=== PATIENT | female | born 1980 | race African-American/Black ===

== ENCOUNTER 2017-01-28 00:52 | Emergency (ER) | payer OTHER ==
[~2017-01-28] VITALS: Ht 165.1 cm; Wt 77.0 kg
[~2017-01-28 00:52] MED LIST: CEPH-569 PO; RIVA20TA PO
[2017-01-28] MEDS ORDERED: IBUPROFEN 600MG TABLET PO ONE (07:15)
[2017-01-28 07:41] LABS: CHLORIDE 105 mEq/L (98-107)
[2017-01-28 07:47] LABS: BASOPHILS % 0.9 % (0.0-2.0); CARBON DIOXIDE 30 mEq/L (21-32); ETHANOL BLOOD < 10 mg/dL; HEMOGLOBIN. 10.2 g/dL (12.0-16.0); LYMPHOCYTES % 40.3 % (20.0-50.0); MEAN CORPUSCULAR HEMOGLOBIN 23.1 pg (28.0-32.0); MEAN CORPUSCULAR VOLUME 74.8 fL (81.0-99.0); MEAN PLATELET VOLUME 7.4 fl (7.4-10.4); MONOCYTES % 9.2 % (2.0-8.0); NEUTROPHILS % 47.6 % (40.0-76.0); PLATELET 282 x1000/uL (130-400); RED BLOOD CELL COUNT 4.42 mill/uL (4.2-5.4); RED CELL DISTRIBUTION WIDTH 19.9 % (11.6-14.6)
[2017-01-28 08:49] LABS: *AMPHETAMINES SCREEN URINE NEGATIVE (NEGATIVE); *BARBITURATES SCREEN URINE NEGATIVE (NEGATIVE); *BENZODIAZEPINES SCREEN URINE NEGATIVE (NEGATIVE); *COCAINE SCREEN URINE NEGATIVE (NEGATIVE); CANNABINOID URINE SCREEN NEGATIVE (NEGATIVE); METHADONE URINE SCREEN NEGATIVE (NEGATIVE); OPIATES URINE SCREEN NEGATIVE (NEGATIVE); PHENCYCLIDINE URINE SCREEN NEGATIVE (NEGATIVE)
[2017-01-28 15:52] VITALS: BP 132/86
== END 2017-01-28 15:58 | disposition home or self-care (01) ==
LOC: ER 00:52
DX: R45.851 Suicidal ideations (principal); M79.605 Pain in left leg; F17.200 Nicotine dependence, unspecified, uncomplicated; F12.10 Cannabis abuse, uncomplicated; Z88.8 Allergy status to other drugs, medicaments and biological substances
CPT/HCPCS: 36415; 80053; 80305; 80307; 80329; 85025; 99284; G0482

== ENCOUNTER 2017-03-05 23:29 | Emergency (ER) | payer OTHER ==
[~2017-03-05] VITALS: Ht 167.6 cm; Wt 84.0 kg
[2017-03-06] MEDS ORDERED: SODIUM CHLORIDE 0.9% 1,000 ML IV ONE (02:03)
[2017-03-06 02:29] LABS: CHLORIDE 106 mEq/L (98-107)
[2017-03-06 02:31] LABS: BASOPHILS % 1.5 % (0.0-2.0); EOSINOPHILS % 1.7 % (0.0-5.0); HEMATOCRIT. 28.3 % (36.0-48.0); HEMOGLOBIN. 8.7 g/dL (12.0-16.0); INR 1.1; LYMPHOCYTES % 49.3 % (20.0-50.0); MEAN CORPUSCULAR HEMOGLOBIN 23.1 pg (28.0-32.0); MEAN CORPUSCULAR VOLUME 74.8 fL (81.0-99.0); MEAN PLATELET VOLUME 6.9 fl (7.4-10.4); MONOCYTES % 9.7 % (2.0-8.0); NEUTROPHILS % 37.8 % (40.0-76.0); PLATELET 313 x1000/uL (130-400); RED BLOOD CELL COUNT 3.79 mill/uL (4.2-5.4); RED CELL DISTRIBUTION WIDTH 18.5 % (11.6-14.6)
[2017-03-06 02:34] LABS: CLARITY URINE CLEAR (CLEAR); COLOR URINE YELLOW (YELLOW); GLUCOSE URINE NEGATIVE (NEGATIVE); KETONES URINE TRACE (NEGATIVE); LEUKOCYTE ESTERASE URINE NEGATIVE (NEGATIVE); NITRITE URINE NEGATIVE (NEGATIVE); OCCULT BLOOD URINE NEGATIVE (NEGATIVE); PROTEIN URINE NEGATIVE (NEGATIVE); SPECIFIC GRAVITY URINE 1.026 (1.005-1.030)
[2017-03-06 02:36] LABS: HCG SCREEN NEGATIVE
[2017-03-06 02:37] LABS: CARBON DIOXIDE 26 mEq/L (21-32)
[2017-03-06 02:48] LABS: *BARBITURATES SCREEN URINE NEGATIVE (NEGATIVE); *BENZODIAZEPINES SCREEN URINE NEGATIVE (NEGATIVE); *COCAINE SCREEN URINE NEGATIVE (NEGATIVE); CANNABINOID URINE SCREEN NEGATIVE (NEGATIVE); METHADONE URINE SCREEN NEGATIVE (NEGATIVE); OPIATES URINE SCREEN NEGATIVE (NEGATIVE); PHENCYCLIDINE URINE SCREEN NEGATIVE (NEGATIVE)
[2017-03-06 02:50] LABS: *AMPHETAMINES SCREEN URINE PRESUMTIVE POSITIVE (NEGATIVE)
[2017-03-06] MEDS ORDERED: KETOROLAC 30MG/ML VIAL IV ONE (03:30)
[2017-03-06 06:10] VITALS: BP 135/86
== END 2017-03-06 06:41 | disposition home or self-care (01) ==
LOC: ER 23:29
DX: F14.10 Cocaine abuse, uncomplicated (principal); F19.10 Other psychoactive substance abuse, uncomplicated; F41.9 Anxiety disorder, unspecified; F32.9 Major depressive disorder, single episode, unspecified; F17.200 Nicotine dependence, unspecified, uncomplicated; R10.84 Generalized abdominal pain; Z79.01 Long term (current) use of anticoagulants; Z88.8 Allergy status to other drugs, medicaments and biological substances
CPT/HCPCS: 36415; 80053; 80305; 81003; 82270; 83690; 84703; 85025; 85610; 96361; 96374; 99284; J1885; J7030; Z7610

== ENCOUNTER 2017-03-10 03:16 | Emergency (ER) | payer OTHER ==
[~2017-03-10] VITALS: Ht 167.6 cm; Wt 95.0 kg
[2017-03-10 03:28] VITALS: BP 135/100
== END 2017-03-10 05:19 | disposition left against medical advice (07) ==
LOC: ER 03:16
DX: Z00.00 Encounter for general adult medical examination without abnormal findings (principal); F41.9 Anxiety disorder, unspecified; F32.9 Major depressive disorder, single episode, unspecified; F17.200 Nicotine dependence, unspecified, uncomplicated; Z79.01 Long term (current) use of anticoagulants; Z88.8 Allergy status to other drugs, medicaments and biological substances
CPT/HCPCS: 99283

== ENCOUNTER 2018-03-11 09:03 | Emergency (ER) | payer OTHER ==
[~2018-03-11] VITALS: Ht 172.7 cm; Wt 82.0 kg
[2018-03-11 10:20] VITALS: BP 130/86
== END 2018-03-11 10:22 | disposition home or self-care (01) ==
LOC: ER 09:38
DX: F41.9 Anxiety disorder, unspecified (principal); I10 Essential (primary) hypertension; F99 Mental disorder, not otherwise specified; D25.9 Leiomyoma of uterus, unspecified; F17.210 Nicotine dependence, cigarettes, uncomplicated; F10.21 Alcohol dependence, in remission
CPT/HCPCS: 81025; 99284

== ENCOUNTER 2018-04-26 21:32 | Emergency (ER) | payer OTHER ==
[~2018-04-26] VITALS: Ht 167.6 cm; Wt 90.0 kg
[2018-04-27 02:36] LABS: CHLORIDE 108 mEq/L (98-107)
[2018-04-27 02:38] LABS: BASOPHILS % 1.2 % (0.0-2.0); EOSINOPHILS % 3.6 % (0.0-5.0); HEMATOCRIT. 28.4 % (36.0-48.0); HEMOGLOBIN. 8.9 g/dL (12.0-16.0); LYMPHOCYTES % 32.5 % (20.0-50.0); MEAN CORPUSCULAR VOLUME 73.8 fL (81.0-99.0); MEAN PLATELET VOLUME 7.3 fl (7.4-10.4); MONOCYTES % 11.9 % (2.0-8.0); NEUTROPHILS % 50.8 % (40.0-76.0); PLATELET 296 x1000/uL (130-400); RED BLOOD CELL COUNT 3.85 mill/uL (4.2-5.4); RED CELL DISTRIBUTION WIDTH 18.4 % (11.6-14.6)
[2018-04-27 02:41] LABS: HCG SCREEN NEGATIVE; PROTHROMBIN TIME 10.1 sec (9.1-11.1)
[2018-04-27 06:07] VITALS: BP 138/75
== END 2018-04-27 06:44 | disposition home or self-care (01) ==
LOC: ER 21:32
DX: R10.9 Unspecified abdominal pain (principal); R05 Cough; D64.9 Anemia, unspecified; F31.9 Bipolar disorder, unspecified; F20.9 Schizophrenia, unspecified; Z98.890 Other specified postprocedural states; Z88.8 Allergy status to other drugs, medicaments and biological substances
CPT/HCPCS: 36415; 71045; 84703; 99284

== ENCOUNTER 2018-04-27 23:15 | Emergency (ER) | payer OTHER ==
[~2018-04-27] VITALS: Ht 167.6 cm; Wt 86.0 kg
[2018-04-28 08:56] VITALS: BP 125/77
== END 2018-04-28 09:27 | disposition home or self-care (01) ==
LOC: ER 23:15
DX: L29.9 Pruritus, unspecified (principal); N93.9 Abnormal uterine and vaginal bleeding, unspecified; F41.9 Anxiety disorder, unspecified; F20.9 Schizophrenia, unspecified; F17.200 Nicotine dependence, unspecified, uncomplicated; F15.10 Other stimulant abuse, uncomplicated; Z59.0 Homelessness
CPT/HCPCS: 99283

== ENCOUNTER 2018-05-03 10:05 | Emergency (ER) | payer OTHER | END 2018-05-03 11:59 | disposition left against medical advice (07) | LOC: ER 10:56 | DX: Z53.21 Procedure and treatment not carried out due to patient leaving prior to being seen by health care provider (principal) ==

== ENCOUNTER 2019-10-21 00:49 | Emergency (ER) | payer MEDICAID, OTHER ==
[~2019-10-21] VITALS: Ht 170.2 cm; Wt 105.0 kg
[2019-10-21 04:45] LABS: CLARITY URINE CLOUDY (CLEAR); COLOR URINE YELLOW (YELLOW); KETONES URINE NEGATIVE (NEGATIVE); LEUKOCYTE ESTERASE URINE NEGATIVE (NEGATIVE); NITRITE URINE NEGATIVE (NEGATIVE); OCCULT BLOOD URINE 3+ (NEGATIVE); PROTEIN URINE 1+ (NEGATIVE); SPECIFIC GRAVITY URINE 1.027 (1.005-1.030)
[2019-10-21 09:15] VITALS: BP 123/68
== END 2019-10-21 09:45 | disposition home or self-care (01) ==
LOC: ER 00:49
DX: H61.23 Impacted cerumen, bilateral (principal); Z59.0 Homelessness; F15.10 Other stimulant abuse, uncomplicated; Z79.899 Other long term (current) drug therapy; Z88.8 Allergy status to other drugs, medicaments and biological substances
CPT/HCPCS: 81003; 81025; 99283

== ENCOUNTER 2019-11-12 20:18 | Emergency (ER) | payer MEDICAID | END 2019-11-12 21:50 | disposition left against medical advice (07) | LOC: ER 20:18 | DX: Z53.21 Procedure and treatment not carried out due to patient leaving prior to being seen by health care provider (principal) ==

== ENCOUNTER 2020-05-14 12:03 | Emergency (ER) | payer MEDICAID ==
[~2020-05-14] VITALS: Ht 170.2 cm; Wt 95.0 kg
[2020-05-14 12:21] VITALS: BP 116/74
== END 2020-05-14 13:30 | disposition left against medical advice (07) ==
LOC: ER 12:03
DX: Z53.21 Procedure and treatment not carried out due to patient leaving prior to being seen by health care provider (principal)

== ENCOUNTER 2020-06-21 02:48 | Emergency (ER) | payer MEDICAID ==
[2020-06-21] MEDS ORDERED: DIPH25CA83 MT ×2 (05:09)
[2020-06-21 05:20] VITALS: BP 106/77
== END 2020-06-21 05:21 | disposition home or self-care (01) ==
LOC: ER 02:48
DX: I82.412 Acute embolism and thrombosis of left femoral vein (principal); I82.432 Acute embolism and thrombosis of left popliteal vein; I83.028 Varicose veins of left lower extremity with ulcer other part of lower leg; F32.9 Major depressive disorder, single episode, unspecified; F15.10 Other stimulant abuse, uncomplicated; F17.210 Nicotine dependence, cigarettes, uncomplicated; F41.9 Anxiety disorder, unspecified; Z88.8 Allergy status to other drugs, medicaments and biological substances
CPT/HCPCS: 93971; 99284

== ENCOUNTER 2020-06-24 16:32 | Inpatient (IN) | payer MEDICAID ==
[~2020-06-24] VITALS: Ht 170.2 cm; Wt 87.5 kg
[~2020-06-24 16:32] MED LIST changes: +DIPH25CA83 MT
[2020-06-24 17:14] LABS: CLARITY URINE CLEAR (CLEAR); COLOR URINE DARK YELLOW (YELLOW); KETONES URINE TRACE (NEGATIVE); LEUKOCYTE ESTERASE URINE NEGATIVE (NEGATIVE); NITRITE URINE NEGATIVE (NEGATIVE); OCCULT BLOOD URINE 2+ (NEGATIVE); PH URINE 5.5 (4.5-8.0); PROTEIN URINE 1+ (NEGATIVE); SPECIFIC GRAVITY URINE 1.041 (1.005-1.030)
[2020-06-24] MEDS ORDERED: PIPERACILLIN/TAZ 3.375G PREMIX 50 ML IV ONE (18:15)
[2020-06-24] MEDS ORDERED: VANCOMYCIN 1 G PREMIX 200 ML IV ONE (18:15)
[2020-06-24] MEDS ORDERED: CLINDAMYCIN 600 MG in DEXTROSE 5% WATER 50 ML IV ONE (18:15)
[2020-06-24 18:22] LABS: *BARBITURATES SCREEN URINE NEGATIVE (NEGATIVE); *COCAINE SCREEN URINE NEGATIVE (NEGATIVE)
[2020-06-24 18:24] LABS: METHADONE URINE SCREEN NEGATIVE (NEGATIVE); OPIATES URINE SCREEN NEGATIVE (NEGATIVE); PHENCYCLIDINE URINE SCREEN NEGATIVE (NEGATIVE)
[2020-06-24 18:26] LABS: *BENZODIAZEPINES SCREEN URINE NEGATIVE (NEGATIVE)
[2020-06-24] MEDS ORDERED: CLINDAMYCIN 600MG PREMIX 50 ML IV NR (18:30)
[2020-06-24 18:51] LABS: BASOPHILS % 0.9 % (0.0-2.0); HEMOGLOBIN. 10.4 g/dL (12.0-16.0); LYMPHOCYTES % 42.9 % (20.0-50.0); MEAN CORPUSCULAR HEMOGLOBIN 26.1 pg (28.0-32.0); MEAN CORPUSCULAR VOLUME 80.2 fL (81.0-99.0); MEAN PLATELET VOLUME 7.6 fl (7.4-10.4); MONOCYTES % 9.4 % (2.0-8.0); NEUTROPHILS % 42.8 % (40.0-76.0); PLATELET 284 x1000/uL (130-400); RED BLOOD CELL COUNT 3.99 mill/uL (4.2-5.4)
[2020-06-24 18:58] LABS: CHLORIDE 105 mEq/L (98-107)
[2020-06-24 19:01] LABS: *AMPHETAMINES SCREEN URINE PRESUMTIVE POSITIVE (NEGATIVE); CANNABINOID URINE SCREEN PRESUMTIVE POSITIVE (NEGATIVE)
[2020-06-24 19:03] LABS: ETHANOL BLOOD < 10 mg/dL
[2020-06-24 19:09] LABS: HCG SCREEN NEGATIVE
[2020-06-24] MEDS ORDERED: IOHEXOL-300 100 ML BOTTLE ONE (21:19)
[2020-06-24] MEDS ORDERED: ACETAMINOPHEN 650MG/20.3ML UDC GT PRN ×2 (22:15)
[2020-06-24] MEDS ORDERED: MAGNESIUM/ALUMINUM HYDROXIDE/SIMETHICONE 30ML UDC PO PRN (22:15)
[2020-06-24] MEDS ORDERED: ACETAMINOPHEN 325MG TABLET PO PRN (22:15)
[2020-06-24] MEDS ORDERED: ACETAMINOPHEN 650MG SUPP PR PRN (22:15)
[2020-06-24] MEDS ORDERED: HALOPERIDOL LACTATE 5MG/ML VIAL IM PRN (22:15)
[2020-06-24] MEDS ORDERED: PIPERACILLIN/TAZ 3.375G PREMIX 50 ML IV SCH (22:15)
[2020-06-24] MEDS ORDERED: ONDANSETRON HCL 4MG/2ML INJ IV PRN (22:15)
[2020-06-25] VITALS (7 sets, daily range): BP systolic 91–118; BP diastolic 50–80
[2020-06-25] MEDS: VANCOMYCIN 750 MG PREMIX 150 ML IV SCH ×3 (05:44→22:30)
[2020-06-25] MEDS: PIPERACILLIN/TAZOBACTAM 3.375 G in DEXT 5% WATER 100 ML IV SCH ×3 (05:44→18:13)
[2020-06-25 06:57] LABS: BASOPHILS % 0.8 % (0.0-2.0); EOSINOPHILS % 3.8 % (0.0-5.0); HEMATOCRIT. 31.8 % (36.0-48.0); HEMOGLOBIN. 10.2 g/dL (12.0-16.0); LYMPHOCYTES % 53.2 % (20.0-50.0); MEAN CORPUSCULAR HEMOGLOBIN 25.7 pg (28.0-32.0); MEAN CORPUSCULAR VOLUME 80.2 fL (81.0-99.0); MEAN PLATELET VOLUME 7.4 fl (7.4-10.4); MONOCYTES % 8.9 % (2.0-8.0); NEUTROPHILS % 33.3 % (40.0-76.0); PLATELET 262 x1000/uL (130-400); RED BLOOD CELL COUNT 3.97 mill/uL (4.2-5.4); RED CELL DISTRIBUTION WIDTH 19.8 % (11.6-14.6)
[2020-06-25 07:04] LABS: CHLORIDE 105 mEq/L (98-107)
[2020-06-25 07:08] LABS: INR 1.1; PROTHROMBIN TIME 11.7 sec (9.6-11.0)
[2020-06-25 07:12] LABS: LDL CHOLESTEROL 48 mg/dL (5-100)
[2020-06-25 07:13] LABS: HDL CHOLESTEROL 64 mg/dL (40-59)
[2020-06-25] MEDS ORDERED: ENOXAPARIN 40MG/0.4ML SYR SUBCUT SCH (11:30)
[2020-06-26] VITALS: BP 108/76
[2020-06-26] MEDS: PIPERACILLIN/TAZOBACTAM 3.375 G in DEXT 5% WATER 100 ML IV SCH ×4 (01:00→19:00)
[2020-06-26 04:11] VITALS: BP 122/84
[2020-06-26 06:25] LABS: CHLORIDE 105 mEq/L (98-107)
[2020-06-26 06:32] LABS: BASOPHILS % 1.1 % (0.0-2.0); EOSINOPHILS % 3.5 % (0.0-5.0); HEMATOCRIT. 32.7 % (36.0-48.0); HEMOGLOBIN. 10.4 g/dL (12.0-16.0); LYMPHOCYTES % 60.6 % (20.0-50.0); MEAN CORPUSCULAR HEMOGLOBIN 25.8 pg (28.0-32.0); MEAN PLATELET VOLUME 7.4 fl (7.4-10.4); MONOCYTES % 10.4 % (2.0-8.0); NEUTROPHILS % 24.4 % (40.0-76.0); PLATELET 245 x1000/uL (130-400); RED BLOOD CELL COUNT 4.04 mill/uL (4.2-5.4); RED CELL DISTRIBUTION WIDTH 19.9 % (11.6-14.6)
[2020-06-26 06:43] LABS: VANCOMYCIN TROUGH 6.5 ug/mL (5.0-10.0)
[2020-06-26 08:00] VITALS: BP 104/74
[2020-06-26 12:00] VITALS: BP 107/69
[2020-06-26] MEDS: APIXABAN 5 MG TABLET PO SCH ×2 (12:00→23:05)
[2020-06-26 16:00] VITALS: BP 110/70
[2020-06-26 20:00] VITALS: BP 106/68
[2020-06-26] MEDS: VANCOMYCIN 1 G PREMIX 200 ML IV SCH ×2 (22:00→22:13)
[2020-06-27] VITALS: BP 95/44
[2020-06-27] MEDS: PIPERACILLIN/TAZOBACTAM 3.375 G in DEXT 5% WATER 100 ML IV SCH ×3 (04:25→15:39)
[2020-06-27] MEDS: ACETAMINOPHEN 325MG TABLET PO PRN ×2 (04:48→18:48)
[2020-06-27 08:12] VITALS: BP 104/72
[2020-06-27] MEDS: APIXABAN 5 MG TABLET PO SCH ×2 (09:46→20:27)
[2020-06-27 12:30] VITALS: BP 106/57
[2020-06-27] MEDS: VANCOMYCIN 1 G PREMIX 200 ML IV SCH (15:40)
[2020-06-27 16:00] VITALS: BP 123/75
[2020-06-27 20:00] VITALS: BP 110/70
[2020-06-27] MEDS: SULFAMETHOXAZOLE/TRIMETHOPRIM 800/160MG TABLET PO SCH (20:27)
[2020-06-27] MEDS: AMOXICILLIN/POTASSIUM CLAVULANATE 875/125MG TAB PO SCH (20:28)
[2020-06-28 07:50] VITALS: BP 99/57
[2020-06-28] MEDS: APIXABAN 5 MG TABLET PO SCH ×2 (08:43→09:53)
[2020-06-28] MEDS: AMOXICILLIN/POTASSIUM CLAVULANATE 875/125MG TAB PO SCH ×2 (08:43→09:53)
[2020-06-28] MEDS: SULFAMETHOXAZOLE/TRIMETHOPRIM 800/160MG TABLET PO SCH ×2 (08:43→09:52)
== END 2020-06-28 11:27 | disposition left against medical advice (07) | DRG 197 ==
LOC: ER 16:32 → MICUSO 21:45 → EDBEDREQSVC 21:50 → EDBEDREQTM 21:50 → EDBEDREQ 21:50 → 5EST 22:33 → 4WST 06-26 11:52
PROVIDERS: ADMIT Family Medicine; ATTEND Family Medicine
DX: I82.402 Acute embolism and thrombosis of unspecified deep veins of left lower extremity (principal); L03.116 Cellulitis of left lower limb; F20.9 Schizophrenia, unspecified; E44.0 Moderate protein-calorie malnutrition; E11.9 Type 2 diabetes mellitus without complications; D50.9 Iron deficiency anemia, unspecified; L97.929 Non-pressure chronic ulcer of unspecified part of left lower leg with unspecified severity; D72.819 Decreased white blood cell count, unspecified; F31.9 Bipolar disorder, unspecified; F17.210 Nicotine dependence, cigarettes, uncomplicated; I87.8 Other specified disorders of veins; F19.10 Other psychoactive substance abuse, uncomplicated; F99 Mental disorder, not otherwise specified; F41.9 Anxiety disorder, unspecified; Z20.822 Contact with and (suspected) exposure to COVID-19; Z53.29 Procedure and treatment not carried out because of patient's decision for other reasons; I83.92 Asymptomatic varicose veins of left lower extremity; Z86.718 Personal history of other venous thrombosis and embolism; Z59.0 Homelessness; Z88.8 Allergy status to other drugs, medicaments and biological substances; Z79.2 Long term (current) use of antibiotics; Z79.899 Other long term (current) drug therapy; Z68.30 Body mass index [BMI] 30.0-30.9, adult
CPT/HCPCS: 36415; 71045; 73701; 80048; 80053; 80061; 80202; 80305; 80307; 80320; 80329; 81003; 82140; 83605; 84443; 84703; 85025; 87426; 93005; 93971; 96365; 97161; 99285; C1893; J1650; J2543; J3370; J3490; J7040; J7060; Q9967; G0480

== ENCOUNTER 2020-07-24 16:45 | Emergency (ER) | payer MEDICAID ==
[~2020-07-24] VITALS: Ht 170.2 cm; Wt 91.0 kg
[2020-07-24 16:55] VITALS: BP 138/87
== END 2020-07-24 18:15 | disposition left against medical advice (07) ==
LOC: ER 16:49
DX: Z48.00 Encounter for change or removal of nonsurgical wound dressing (principal); F15.10 Other stimulant abuse, uncomplicated; Z88.8 Allergy status to other drugs, medicaments and biological substances; Z86.59 Personal history of other mental and behavioral disorders

== ENCOUNTER 2020-07-24 19:42 | Emergency (ER) | payer MEDICAID ==
[~2020-07-24] VITALS: Ht 170.2 cm; Wt 100.0 kg
[2020-07-24 21:13] VITALS: BP 130/75
== END 2020-07-24 21:22 | disposition home or self-care (01) ==
LOC: ER 19:42
DX: K08.89 Other specified disorders of teeth and supporting structures (principal); F15.10 Other stimulant abuse, uncomplicated; Z88.8 Allergy status to other drugs, medicaments and biological substances; Z48.00 Encounter for change or removal of nonsurgical wound dressing; Z86.59 Personal history of other mental and behavioral disorders; Z98.890 Other specified postprocedural states
CPT/HCPCS: 99281

== ENCOUNTER 2020-08-16 19:42 | Emergency (ER) | payer MEDICAID ==
[~2020-08-16] VITALS: Ht 162.6 cm; Wt 83.5 kg
[2020-08-16 23:10] VITALS: BP 131/77
[2020-08-16] MEDS ORDERED: PERM59LI8 TP (23:41)
== END 2020-08-16 23:47 | disposition home or self-care (01) ==
LOC: ER 19:42
DX: R22.2 Localized swelling, mass and lump, trunk (principal); F32.9 Major depressive disorder, single episode, unspecified; F15.10 Other stimulant abuse, uncomplicated; Z98.890 Other specified postprocedural states; Z88.8 Allergy status to other drugs, medicaments and biological substances
CPT/HCPCS: 99281

== ENCOUNTER 2020-09-27 11:33 | Emergency (ER) | payer MEDICAID ==
[~2020-09-27] VITALS: Ht 167.6 cm; Wt 82.0 kg
[~2020-09-27 11:33] MED LIST changes: -CEPH-569 PO; -DIPH25CA83 MT; +PERM59LI8 TP; -RIVA20TA PO
[2020-09-27] MEDS ORDERED: ACETAMINOPHEN 325MG TABLET PO ONE (12:00)
[2020-09-27] MEDS ORDERED: CEPH500C2 MT (12:01)
[2020-09-27 12:20] VITALS: BP 132/70
== END 2020-09-27 12:20 | disposition home or self-care (01) ==
LOC: ER 11:33
DX: I83.028 Varicose veins of left lower extremity with ulcer other part of lower leg (principal); F15.10 Other stimulant abuse, uncomplicated; F32.9 Major depressive disorder, single episode, unspecified; Z98.890 Other specified postprocedural states; Z88.8 Allergy status to other drugs, medicaments and biological substances
CPT/HCPCS: 99283

== ENCOUNTER 2020-10-05 02:12 | Emergency (ER) | payer MEDICAID ==
[~2020-10-05] VITALS: Ht 162.6 cm; Wt 100.0 kg
[~2020-10-05 02:12] MED LIST changes: +CEPH500C2 MT
[2020-10-05 02:29] VITALS: BP 135/79
== END 2020-10-05 04:04 | disposition home or self-care (01) ==
LOC: ER 02:12
DX: R60.0 Localized edema (principal); Z86.59 Personal history of other mental and behavioral disorders; Z88.8 Allergy status to other drugs, medicaments and biological substances
CPT/HCPCS: 99281

== ENCOUNTER 2021-02-26 01:29 | Emergency (ER) | payer MEDICAID ==
[~2021-02-26] VITALS: Ht 165.1 cm; Wt 102.0 kg
[~2021-02-26 01:29] MED LIST changes: +CEPH250C2 PO; -CEPH500C2 MT; +FERR325T23 PO; -PERM59LI8 TP
[2021-02-26] MEDS ORDERED: CEFTRIAXONE SODIUM 1 G/VIAL IM ONE (04:15)
[2021-02-26 04:34] LABS: BASOPHILS % 1.1 % (0.0-2.0); EOSINOPHILS % 2.8 % (0.0-5.0); HEMATOCRIT. 32.9 % (36.0-48.0); HEMOGLOBIN. 10.1 g/dL (12.0-16.0); LYMPHOCYTES % 38.4 % (20.0-50.0); MEAN CORPUSCULAR VOLUME 81.7 fL (81.0-99.0); MEAN PLATELET VOLUME 7.1 fl (7.4-10.4); NEUTROPHILS % 49.7 % (40.0-76.0); PLATELET 299 x1000/uL (130-400); RED BLOOD CELL COUNT 4.03 mill/uL (4.2-5.4); RED CELL DISTRIBUTION WIDTH 28.6 % (11.6-14.6)
[2021-02-26 04:36] LABS: CHLORIDE 106 mEq/L (98-107)
[2021-02-26 04:40] LABS: ETHANOL BLOOD < 10 mg/dL
[2021-02-26 04:58] LABS: HCG SCREEN NEGATIVE
[2021-02-26] MEDS ORDERED: CLIN300C12 MT (05:06)
[2021-02-26 05:09] LABS: *BARBITURATES SCREEN URINE NEGATIVE (NEGATIVE); *BENZODIAZEPINES SCREEN URINE NEGATIVE (NEGATIVE); *COCAINE SCREEN URINE NEGATIVE (NEGATIVE); METHADONE URINE SCREEN NEGATIVE (NEGATIVE); OPIATES URINE SCREEN NEGATIVE (NEGATIVE)
[2021-02-26 05:10] LABS: CANNABINOID URINE SCREEN NEGATIVE (NEGATIVE)
[2021-02-26 05:56] VITALS: BP 125/67
[2021-02-26 06:06] LABS: PLATELET ESTIMATE NORMAL
[2021-02-26 06:07] LABS: *AMPHETAMINES SCREEN URINE PRESUMTIVE POSITIVE (NEGATIVE); PHENCYCLIDINE URINE SCREEN PRESUMTIVE POSITIVE (NEGATIVE)
== END 2021-02-26 05:58 | disposition home or self-care (01) ==
LOC: ER 01:29
DX: L03.116 Cellulitis of left lower limb (principal); F31.9 Bipolar disorder, unspecified; F20.9 Schizophrenia, unspecified
CPT/HCPCS: 36415; 80053; 80305; 80307; 80320; 80329; 84703; 85025; 96372; 99283; J0696; G0480